=== PATIENT | female | born 1945 | race Caucasian/White ===

== ENCOUNTER 2024-10-09 20:53 | Emergency (ER) | payer MEDICARE, SELFPAY ==
--- NOTE | ~2024-10-09 | XR_ITS ---
XR hand RT min 3V Ordering provider: Julia Stephenson PA-C History: . fall . Comparison: None. FINDINGS: BONES: Fracture at the base of the fifth metacarpal bone. No other fractures seen. JOINT SPACES: Narrowing of the proximal and distal interphalangeal joints. SOFT TISSUES: Normal. IMPRESSION: Fracture at the base of the fifth metacarpal bone. Polyarticular osteoarthritic changes. Reviewed, dictated and finalized at location A.
--- NOTE | ~2024-10-09 | CT_ITS ---
CT brain wo con Ordering provider: Julia Stephenson PA-C History: 79 years Female with . fal . Comparison: None. Technique: CT of the head without contrast. Radiation reduction technique utilized.The dose-length pr oduct was 681 mGy-cm. FINDINGS: BRAIN PARENCHYMA AND CSF SPACES: Mild leukoaraiosis and diffuse cortical atrophy. Mild atheromatous d isease. No midline shift, mass effect or hemorrhage. The brain parenchyma and CSF spaces are otherwi se normal. VISUALIZED PARANASAL SINUSES: Bilateral ethmoid sinus disease. MASTOIDS: Well aerated. BONES: The bones appear intact. Bilateral nasal bone fracture. SOFT TISSUES: Visualized nasopharynx is normal. Small frontal scalp hematoma otherwise, Superficial soft tissues are normal. IMPRESSION: No acute intracranial findings. Bilateral nasal bone fracture. Reviewed, dictated and finalized at location A.
--- NOTE | ~2024-10-09 | CT_ITS ---
CT facial & cervical spine wo Ordering provider: Julia Stephenson PA-C History: . fall . Comparison: None. Technique: Thin slice axial CT of the facial bones was performed without contrast. Coronal and sagit ashley reformatted images were also obtained. . Automated exposure control and iterative reconstruction technique were employed. The dose-length product was 305.88 mGy-cm. FINDINGS: PARANASAL SINUSES: Bilateral ethmoid sinus disease.. BONES: Bilateral nasal bone fracture with displacement on the left side. Fracture of the nasal septum . ORBITS AND SUPERFICIAL SOFT TISSUES: The optic globes and orbits are normal. Frontal scalp hematoma. Soft tissue swelling with air over the nasal bones. Otherwise, The superficial soft tissues are evy l. VISUALIZED MASTOIDS: Well aerated. LIMITED VISUALIZED BRAIN PARENCHYMA: Normal. IMPRESSION: Bilateral nasal bone fracture with displacement on the left side. Fracture of the nasal septum anteriorly. CT facial & cervical spine wo Ordering provider: Julia Stephenson PA-C History: . fall . Comparison: None. Technique: CT of the cervical spine was performed without contrast. Sagittal and coronal reformatted images were also obtained and reviewed. Automated exposure control and iterative reconstruction link hnique were employed. The dose-length product was 305.88 mGy-cm. FINDINGS: VERTEBRAE: No subluxation or acute fracture. The occipital condyles are intact. DISC SPACES: Narrowing of the disc C4-C5, C5-C6 and C6-C7. Multilevel facet joint disease. Multilevel uncovertebral joint osteoarthritic changes. Multilevel intervertebral foraminal narrowing. PARASPINOUS SOFT TISSUES: Left thyroid nodule. Ultrasound evaluation advised. The left and IMPRESSION: No acute osseous abnormality cervical spine. Multilevel degenerative disc disease. Left thyroid nodule. Ultrasound evaluation advised Reviewed, dictated and finalized at location A. IMPRESSION: Bilateral nasal bone fracture with displacement on the left side. Fracture of the nasal septum anteriorly. CT facial & cervical spine wo Ordering provider: Julia Stephenson PA-C History: . fall . Comparison: None. Technique: CT of the cervical spine was performed without contrast. Sagittal a nd coronal reformatted images were also obtained and reviewed. Automated expos ure control and iterative reconstruction technique were employed. The dose-job th product was 305.88 mGy-cm. FINDINGS: VERTEBRAE: No subluxation or acute fracture. The occipital condyles are intact. DISC SPACES: Narrowing of the disc C4-C5, C5-C6 and C6-C7. Multilevel facet josie nt disease. Multilevel uncovertebral joint osteoarthritic changes. Multilevel intervertebral foraminal narrowing. PARASPINOUS SOFT TISSUES: Left thyroid nodule. Ultrasound evaluation advised. T he left and
[2024-10-09 21:03] VITALS: BP 164/62; PULSE 72; RESP 18; TEMP 36.9; O2SAT 96
--- OUTSIDE RECORDS SUMMARY | 2024-10-09 21:21 | XMS_ITS | Continuity of Care Document ---
Author Organization [facility] Address [address] [place] [address] Phone Care Team Providers Care Retail Client Solutions Consultant Name Role Phone Nitin DOWLING, SAE, Trena Unavailable Unavailab le Procedures Procedure Date OFFICE/OUTPATIENT VISIT, EST OFFICE/OUTPATIENT VISIT, EST Advance Directives Directive Yes / No Effective Date File Name No Information Encounters Encounter Description Practice Location Reason(s) For Visit Diagnoses Date Provider Providers Copied on Encounter OFFICE/OUTPAT IENT VISIT, EST [facility], [address], [place], [place], [id number], [place] tel:[phone] [facility] No Information 8 Nitin DOWLING, [facility]. [address], [place], [address]. tel:[phone] Referring Provider: Lazaro Mendez, [address] [place], [address]. tel:[phone] OFFICE/OUTPAT IENT VISIT, EST [facility], [address], [place], [place], [id number], [place] tel:[phone] [facility] No Information 8 SAE Taveras MD. [address], [place], [address]. tel:[phone] Referring Provider: Trena [facility]averas MD, [facility], [address], [place], [address]. tel:[phone] Family History Family Member Type Diagnosis Age At Onset No Information Payers Payer name Insurance type Covered libertarian ID Nick guerrero(s) [facility] [id number] Social History Type Description Quantity Date Captured Comments Sex Female Smoking Status No Information Chief Complaint And Reason For Visit No Information Reason For Referral Reason For Referral No Information History Of Present Illness Encounter Date Complaint History Of Prese nt Illness No Information Functional Status Date Functional Assessmen t No Information Instructions Date Instruction Additional Infor mation No Information Assessments Type Assessment Date No Information Patient Care Teams Name Effective Dates (start - stop) Status Members No Information
--- OUTSIDE RECORDS SUMMARY | 2024-10-09 21:21 | XMS_ITS | Continuity of Care Document ---
Author Organization [facility] Address [address] [place] [address] Phone Care Team Providers Care Carpet Measurer Name Role Phone Jason Sauceda MD Unavailable Unavailable Allergies, Adverse Reactions, Alerts Substance Reaction Status Criticality sorbitol Active No Information PRESERVATIVE FREE Active No Informa tion MEPERIDINE HCL Active No Informatio n codeine Active No Information Medications Medication Instructions Dosage Effective Dates (start - stop) Status Comments Cymbalta 60 mg capsule,delayed release - Active lisinopril 10 mg tablet - Active sulindac 200 mg tablet - Active Procedures Procedure Date RADEX KNE / VIEWS OFFICE/OUTPATIENT VISIT NEW Advance Directives Directive Yes / No Effective Date File Name No Information Encounters Encounter Description Practice Location Reason(s) For Visit Diagnoses Date Provider Providers Copied on Encounter OFFICE/OUTPA TIENT VISIT NEW [facility], [address], [place], [address], tel:[phone] [facility] History of total left knee replacementIlioti bial band syndrome of left side 0 Sohail Gomez. [address], [place], [place], [id number] . tel:[phone] Referring Provider: Jason Jerome, [address], [place], [address]. tel:[phone] Family History Family Member Type Diagnosis Age At Onset Father Problem Family history unknown Payers Payer name Insurance type Covered libertarian ID Authoriza tion(s) Medicare E2 OT [id number] AARP E2 OT [id number] Social History Type Description Quantity Date Captured Comments Alcohol Use Details beer & wine Caffeine Use Details Unknown Tobacco Use Status Current non-smoker 20 Smoking Status Never smoker Non-Smoking Tobacco Use Details : No Details Available : No Details Available Sex Female Vital Signs Date / Time: Height Weight BMI Pulse Rate Blood Pressure Temperature Respiratory Rate Body Surface Area Head Circumference Head Circ. Percentile Wt./Hermelindo. Percentile BMI percentile Pulse Ox Inhaled Ox 1:01 PM 67.00 in 77.111 kg (170.00 lbs) 26.6 3 kg/m eter (2) Chief Complaint And Reason For Visit No Information Reason For Referral Reason For Referral No Information Plan Of Treatment Date Type Action Status Referral Ordered: RADEX KNE 1/2 VIEWS LT ordered History Of Present Illness Encounter Date Complaint History Of Prese nt Illness No Information Functional Status Date Functional Assessmen t No Information Instructions Date Instruction Additional Infor mation Rest, ice and elevate. Related t o Iliotibial band syndrome of left side Discussed treatment options Rela yolande to Iliotibial band syndrome of left side Assessments Type Assessment Date assessment History of total left knee repla cement assessment Iliotibial band syndrome of left side Patient Care Teams Name Effective Dates (start - stop) Status Members No Information
--- OUTSIDE RECORDS SUMMARY | 2024-10-09 21:21 | XMS_ITS | Continuity of Care Document ---
Author Organization [employer] Address [address] [place] [address] Phone Care Team Providers Care Repairer Cylinder Heads Name Role Phone Rukhsana BALDERAS, Claudine Unavailable Unavailab le Allergies, Adverse Reactions, Alerts Substance Reaction Status Criticality clarithromycin Active No Informatio n codeine Active No Information hydrochlorothiazide Active No Infor mation MEPERIDINE HCL Active No Informatio n sorbitol Active No Information Medications Medication Instructions Dosage Effective Dates (start - stop) Status Comments budesonide DR & ER 3 mg capsule,delayed & extended release take 2 capsule (6mg) daily for 14 days then reduce to 1 capsule (3mg) daily for 14 days then stop. - Active CYMBALTA (unknown strength) take 1 capsule by oral route every day Not Available - Active simvastatin 10 mg tablet take 1 tablet by oral route every day in the evening 10 MG - Active sulindac 200 mg tablet take 1 tablet by oral route 2 times every day with food 200 MG - Active Nasonex 50 mcg/actuation [place] spray 2 spray by intranasal route every day in each nostril as needed - Active Uceris 9 mg tablet, extended release take 1 tablet by oral route every day in the morning swallowing whole with water. Do not break, crush, dissolve and/or chew. 9 MG - Active multivitamin tablet - Active flaxseed oil 1,000 mg capsule - Active Asacol HD 800 mg tablet,delayed release take 1 Tablet by oral route every day 0.8 G - Active aspirin 325 mg tablet take 1 tablet by oral route every day 325 MG - Active diltiazem ER 240 mg tablet,extended release 24 hr take 1 tablet by oral route every day 240 MG - Active Advance Directives Directive Yes / No Effective Date File Name No Information Encounters Encounter Description Practice Location Reason(s) For Visit Diagnoses Date Provider Providers Copied on Encounter [facility], [address], [place], [place], [id number] , tel: [phone] [facility] No Information Jan-0 4 Rukhsana Chow. [address] [place] [address], [id number], . tel:[phone] [facility], [address], [place], [place], [id number] , tel: [phone] [facility] No Information 4 Pedro Steven. [address] [place] [address], [id number], . tel:[phone] [facility], [address], [place], [place], [id number] , tel: [phone] [facility] Collagenous colitisDiverticulosi s of colon 4 Rukhsana Chow. [address] [place] [address], [address], [id number], . tel:[phone] Referring Provider: Claudine Milian, [address] [place] [address], [address] . tel:[phone] Family History Family Member Type Diagnosis Age At Onset Mother Problem (finding) alzheimer's disease Payers Payer name Insurance type Covered republican ID Authoriza tion(s) MEDICARE [id number] [facility] MDCR SUPPLEMENT ONLY CI [id number] Social History Type Description Quantity Date Captured [...]
--- NOTE | 2024-10-09 21:35 | ED_ITS ---
HPI - Fall General Chief Complaint: Fall Stated Complaint: fall, facial trauma w/ nosebleed History of Present Illness HPI Narrative: 79-year-old female with history of dementia presents via EMS from [facility] with also with a ground level fall. Reportedly patient tried to ?run? from the staff when she tripped, fell and landed on her face. Staff denied LOC. She presents with abrasions to her nose and bilateral epistaxis which was controlled with a nasal clamp. Patient is not on anticoagulants. She is A&O x1 which is her baseline. She has no complaints. Related Data Allergies Allergy/AdvReac Type Severity Reaction Status Date / Time codeine Allergy Severe Diarrhea Verified 10/09/24 23:01 meperidine (From Demerol) Allergy Diarrhea Verified 10/09/24 23:01 Review of Systems Review of Systems: All systems reviewed & are unremarkable except as noted in HPI and below Exam Narrative: GENERAL: Well-appearing, well-nourished, and in no acute distress. HEAD: Normocephalic EYES: PERRLA, EOMI. Mild ecchymosis to the right orbit. No proptosis or ocul ar entrapment ENT: Minimal bilateral epistaxis with no septal hematomas. 0.5cm laceration to the tip of the right nostril with no active bleeding. Abrasion to the bridge of nose with mild oozing. Laceration to the inner upper lip extending to the right of the frenulum with no active bleeding. No tongue lacerations. No dental fractures appreciated NECK: No midline cervical spinous is, thus, step-offs or deformities BACK: No midline thoracolumbar spinous tenderness, crepitus, step-offs or deformities CHEST: Clear to auscultation. No respiratory distress. No tenderness to chest wall, no ecchymosis crepitus HEART: Regular rate and rhythm. No murmur heard. Normal peripheral pulses. ABDOMEN: Soft, nontender, nondistended, normal active bowel sounds. No rebound or rigidity, no ecchymosis EXTREMITIES: Ecchymosis and mild tenderness to the dorsum of the right 3rd through 5th metacarpals. Patient is able to make a fist and extend all digits. Radial pulse 2 +. Cap refill less than 2. No tenderness remainder of upper lower extremities with full range of motion SKIN: See ENT NEURO: No focal deficits. Alert and oriented x1. Moving all extremities spontaneously Course Vital Signs Vital signs: Vital Signs Temperature 98.5 F 10/09/24 21:03 Pulse Rate 72 10/09/24 21:03 Respiratory Rate 18 10/09/24 21:03 Blood Pressure 164/62 H 10/09/24 21:03 Pulse Oximetry 96 10/09/24 21:03 Oxygen Delivery Room Air 10/09/24 21:03 Temperature 98.5 F 10/09/24 21:03 Pulse Rate 72 10/09/24 21:03 Respiratory Rate 18 10/09/24 21:03 Blood Pressure 164/62 H 10/09/24 21:03 Pulse Oximetry 96 10/09/24 21:03 Oxygen Delivery Room Air 10/09/24 21:03 Procedures Laceration Laceration 1: Date: 10/10/24 Time: 00:06 Site: face Size (cm): 0.5 Description: linear Depth: simple, single layer Pre-repair: wound explored and irrigated ====== Skin Level ====== Skin layer closed with: dermabond ====== Subcutaneous Layer ====== ====== Muscle Layer ====== ====== Tendon Layer ====== MDM - Fall MDM Narrative Medical decision making narrative: 79-year-old female with history of dementia presents to the ED via EMS from [facility] with a ground level fall. Patient reportedly was trying to ?run? from staff, tripped and fell, hitting her face on the ground. Staff denied LOC. Patient is not on anticoagulants. Vitals with elevated blood pressure, otherwise unremarkable. Exam is notable for the above. CT brain shows no acute intracranial findings. CT facial bones show bilateral nasal bone fracture with displacement on the left side and fracture of the nasal septum anteriorly. CT cervical spine shows no acute osseous findings. Incidentally there was found to be multilevel degenerative disc disease and a left thyroid nodule with recommendations for ultrasound. X-ray of the right hand shows a fracture at the base of the 5th metacarpal bone consistent with exam findings. Patient's daughter/POA, Vane, is now at bedside. Discussed workup and results. Shared decision making regarding laceration repairs. Given patient is demented and not cooperating, Vane agrees to close the laceration to the nose with skin glue as opposed to sutures. We also discussed closure of inner lip laceration. Again given patient is not cooperating, I think it would be very difficult to anesthetize this area and perform a primary closure. Vane agrees with this and agrees to have patient heal via secondary intention. Will cover with Augmentin, 1st dose provided in the ED. ENT referral provided. Her Tdap was updated and abrasions/lacerations were cleansed with normal saline. Patient was also placed in a right ulnar gutter splint for 5th metacarpal fracture and provided orthopedic follow-up. Discussed strict ED return precautions. Patient's daughter at bedside is agreeable with the plan verbalized understanding. Patient transferred back to skilled nursing facility. Discharge Plan Discharge Clinical Impression: Abrasion, Laceration Fracture of nasal bone Qualifiers: Encounter type: initial encounter Fracture type: closed Qualified Code(s): S02.2XXA - Fracture of nasal bones, initial encounter for closed fracture Fracture, metacarpal Qualifiers: Encounter type: initial encounter Metacarpal bone: fifth Fracture type: closed Metacarpal location: base Fracture alignment: nondisplaced Laterality: right Qualified Code(s): S62.346A - Nondisplaced fracture of base of fifth metacarpal bone, right hand, initial encounter for closed fracture Patient Disposition: Home Condition: Stable Instructions: Antibiotic Form, Nasal Fracture (ED), Laceration (ED), Hand Fracture (DC) Additional Instructions: Vane was evaluated in the emergency department for a fall. She was found to have several nasal bone fractures and a fracture to her right 5th metacarpal. She also has an upper lip laceration that was not closed due to difficulty with closure and lack of patient cooperation. She had a small laceration to the tip of her nose which was closed with skin glue. She was started on antibiotics to help prevent infection. She needs to follow-up with orthopedic surgeon and your nose and throat doctor. Reasons for her to return to the emergency department include increased confusion, seizure-like activity, loss of consciousness, surrounding redness or drainage to her wounds, fever, increasing pain to her hand, a white or numb hand, or other concerning symptoms. Patient Language: Bruneian Prescriptions: New amoxicillin-pot clavulanate 875-125 mg tablet 1 tablet PO Q12H Qty: 14 0RF acetaminophen 500 mg capsule 500 mg PO Q6H PRN (Reason: pain) Qty: 14 0RF Follow-up/Referrals: Minoo,Cleve Dey MD [Primary Care Provider] - Viktor Reveles MD [Physician] - Terence Barth MD [Physician] -
[2024-10-09] MEDS: TETANUS,DIPHTHERIA,AC PERTUSSIS ADULT (0.5 ML) BOOSTRIX IM (23:01)
[2024-10-10 00:23] VITALS: BP 152/61; PULSE 81; RESP 16; O2SAT 97
[2024-10-10 01:23] VITALS: BP 146/66; PULSE 76; RESP 18; O2SAT 96
[2024-10-10] MEDS: AMOXICILLIN/CLAVULANATE K 875-125 MG TAB 1 TABLET PO (01:24)
[2024-10-10] MEDS: ACETAMINOPHEN 325 MG TABLET 650 MG PO (01:24)
[2024-10-10 02:25] VITALS: BP 146/66; PULSE 76; RESP 18; O2SAT 96
== END 2024-10-10 02:28 | disposition home or self-care (01) ==
PROVIDERS: Emergency Provider Physician Assistant; PCP Family Medicine
DX: S02.2XXA Fracture of nasal bones, initial encounter for closed fracture (principal); S62.346A Nondisplaced fracture of base of fifth metacarpal bone, right hand, initial encounter for closed fracture; W18.30XA Fall on same level, unspecified, initial encounter; Z23 Encounter for immunization
CPT/HCPCS: 12011; 70450; 70486; 72125; 73130; 90471; 90715; 99284; A9270